=== PATIENT | male | born 1975 | race Caucasian/White ===

== ENCOUNTER 2016-08-28 06:51 | Emergency (ER) | payer OTHER, MEDICARE ==
[~2016-08-28] VITALS: Ht 172.7 cm; Wt 68.0 kg
[2016-08-28] MEDS ORDERED: SUBOXONE 8 MG-1 EACH SL (07:04)
[2016-08-28] MEDS ORDERED: LATUDA20 M1 PO (07:05)
--- NOTE | 2016-08-28 08:08 | ED GENERAL ADULT ---
History of Present Illness General Chief Complaint: ETOH/Drug Related Complaint Stated Complaint: WAS ON SUBOXONE,USED HEROIN NOW HAVING PROBLEMS Source: patient Exam Limitations: no limitations Vital Signs & Intake/Output Vital Signs & Intake/Output Vital Signs Date Time Temp Pulse Resp B/P Pulse O2 O2 Flow FiO2 Ox Delivery Rate 08/28 1039 97.2 60 18 118/79 98 Room Air 08/28 0844 97.2 57 18 129/81 99 Room Air 08/28 0820 96.3 95 18 142/75 08/28 0709 98 Room Air 08/28 0705 96.3 95 18 142/75 98 Room Air Allergies Coded Allergies: haloperidol (From HALDOL) (UNKNOWN 08/28/16) Reconcile Medications Buprenorphine HCl/Naloxone HCl (Suboxone 8 MG-2 MG Sl Film) 8 MG-2 MG FILM 1 STR SL DAILY HEROIN (Reported) Lurasidone HCl (Latuda) 20 MG TABLET 1 TAB PO DAILY SLEEP (Reported) Triage Note: TRIAGE: PATIENT TO ER FROM HOME REPORTING HX HEROIN ABUSE, RELAPSED FEW WEEKS AGO, LAST USE THIS AM APPROX 3 BAGS, THEN REPORTS TOOK SUBOXONE 12MG TOTAL X "3-5 HOURS AGO." PATIENT VERY ANXIOUS STATING, "I PUT MYSELF IN PERCIPITATIVE WITHDRAWL." NOW REPORTING GENERALIZED PAIN TO ENTIRE BODY AND LOWER EXTREMITIES AND "SO COLD." Triage Nurses Notes Reviewed? yes HPI: Patient presents for evaluation of opiate withdrawal. Patient states he has been on Suboxone for 2 years. He then got depressed and discontinued his Suboxone and began using heroin. He's been using this about 1 week, 5 or so bags per day. His last use was about 8:30 yesterday morning. He tried taking 2 Suboxone tablets but this only made his symptoms worse. He is now complaining of severe muscle aches, leg pains and nausea/vomiting. Nothing seems to make him feel better. Symptoms have been more or less constant since gradual onset, fluctuating in intensity. Past History Travel History Traveled to [place] past 21 day No Medical History Any Pertinent Medical History? see below for history Neurological: NONE EENT: NONE Cardiovascular: AFIB Respiratory: NONE Gastrointestinal: NONE Hepatic: NONE Renal: NONE Musculoskeletal: NONE Psychiatric: depression, IV drug abuse Blood Disorders: NONE Cancer(s): NONE ORAL SURGERY TECHNICIAN/Reproductive: NONE Surgical History Surgical History: non-contributory Psychosocial History What is your primary language Gibraltarian Tobacco Use: Never used ETOH Use: denies use Illicit Drug Use: heroin Family History Hx Contributory? No Review of Systems Review of Systems Constitutional: Reports: no symptoms. EENTM: Reports: no symptoms. Respiratory: Reports: no symptoms. Cardiovascular: Reports: no symptoms. GI: Reports: see HPI. Genitourinary: Reports: no symptoms. Musculoskeletal: Reports: see HPI. Skin: Reports: no symptoms. Neurological/Psychological: Reports: no symptoms. Hematologic/Endocrine: Reports: no symptoms. Immunologic/Allergic: Reports: no symptoms. All Other Systems: Reviewed and Negative Physical Exam Physical Exam General Appearance: SEE BELOW Comments: Gen.: Well-nourished, well-developed, no acute respiratory distress. Mildly uncomfortable appearing. Head: Normocephalic, atraumatic. Eyes: Normal inspection bilaterally Ears: Normal inspection bilaterally Nose: Normal inspection Throat/mouth : Moist mucosa Neck: Supple, full range of motion, no goiter Heart: Regular rate and rhythm, no murmurs rubs or gallops Lungs: Clear to auscultation bilaterally with normal air entry Chest: Nontender Back: Normal range of motion Abdomen: Soft, mild diffuse tenderness without rebound or guarding, nondistended , increased bowel sounds Extremities: Normal range of motion grossly, equal radial pulses, no cyanosis clubbing or edema Neurologic: Cranial nerves grossly intact, speech is clear Skin: warm and dry Psychiatric: Slightly anxious, cooperative, no apparent delusions or hallucinations Core Measures ACS in differential dx? No CVA/TIA Diagnosis: No Severe Sepsis Present: No Septic Shock Present: No Progress Differential Diagnoses I considered the following diagnoses in my evaluation of the patient: Opiate withdrawal, viral syndrome Plan of Care: Current Medications Sig/Sharri Start time Last Medication Dose Stop Time Status Admin Clonidine 0.1 MG ONCE ONE 08/28 814 UNVr (Catapres) 08/29 815 Promethazine HCl 25 MG ONCE ONE 08/28 814 UNVr (Phenergen) 08/29 815 Initial ED EKG: none Comments: 08/28/2016 10:50:40 AM patient sleeping comfortably. Departure Departure Disposition: HOME OR SELF CARE Condition: Stable Clinical Impression Primary Impression: Opiate withdrawal Referrals: TISHA MCCRACKEN,ABBE Zarate (PCP/Family) Additional Instructions: Phenergan as needed for nausea or vomiting. Clonidine as needed for elevated heart rate or blood pressure. Follow-up with your primary care physician on Wednesday. Return if any concerns or sudden worsening. Departure Forms: Customer Survey General Discharge Information Prescriptions: Current Visit Scripts Promethazine HCl 1 TAB PO Q6P PRN NAUSEA/VOMITING #20 TAB Clonidine HCl 1 TAB PO QPM PRN HIGH HEART RATE #3 TAB Critical Care Note Critical Care Note Critical Care Time: non-applicable
[2016-08-28 10:39] VITALS: BP 118/79
[2016-08-28] MEDS ORDERED: PROMETHAZINE HC25 M3 PO (11:05)
[2016-08-28] MEDS ORDERED: CLONIDINE HCL0.1 MG PO (11:05)
== END 2016-08-28 11:15 ==
LOC: ERH 06:51
DX: F11.23 Opioid dependence with withdrawal (principal)
CPT/HCPCS: 96372; J2550

== ENCOUNTER 2016-11-24 04:37 | Emergency (ER) | payer OTHER, MEDICARE ==
[~2016-11-24] VITALS: Ht 172.7 cm; Wt 72.6 kg
[~2016-11-24 04:37] MED LIST: CLONIDINE HCL0.1 MG PO; LATUDA20 M1 PO; PROMETHAZINE HC25 M3 PO; SUBOXONE 8 MG-1 EACH SL
--- NOTE | 2016-11-24 05:09 | ED EYE COMPLAINT ---
History of Present Illness General Chief Complaint: Eye Problems Stated Complaint: EYE PROBLEMS Source: patient, friend Exam Limitations: unable to give history, intoxication Vital Signs & Intake/Output Vital Signs & Intake/Output Vital Signs Date Time Temp Pulse Resp B/P B/P Pulse O2 O2 Flow FiO2 Mean Ox Delivery Rate 11/24 0802 98.4 84 18 101/65 96 Room Air 11/24 0608 97.0 86 18 96/62 99 Room Air 11/24 0503 94 Room Air 11/24 0447 96.8 63 10 112/83 90 Room Air Allergies Coded Allergies: haloperidol (From HALDOL) (UNKNOWN 08/28/16) Reconcile Medications Buprenorphine HCl/Naloxone HCl (Suboxone 8 MG-2 MG Sl Film) 8 MG-2 MG FILM 1 STR SL DAILY HEROIN (Reported) Clonidine HCl 0.1 MG TABLET 1 TAB PO QPM PRN HIGH HEART RATE Lurasidone HCl (Latuda) 20 MG TABLET 1 TAB PO DAILY SLEEP (Reported) Promethazine HCl 25 MG TABLET 1 TAB PO Q6P PRN NAUSEA/VOMITING Triage Note: PT TO ED C/O RIGHT EYE SWELLING. ARRIVES WITH FRIEND. IS DROUSY/AROUSABLE WITH VERY SLURRED SPEACH. PIN POINT PUPILS. O2 SAT 84-92 WITH RESP RATE VARIABLE 6/MN TO 12/MIN. FRIEND STATES " HE MUST HAVE GOTTEN SOMETHING IN HIS EYE AFTER HE USED HEROIN. WE FLUSHED THE EYE WITH WATER AND VISINE AND IT WAS REALLY SWOLLEN" FRIEND STATES SWELLING HAS GREATLY REDUCED" SLIGHT SWELLING NOTED AT THIS TIME. PT ADMINISTERED 0.4 MG NARCAN IM WITH GOOD IMPROVEMENT WITH RESPIRATORY EFFORT AND RATE. O2 SAT 90-94% PT EVALUATED BY DR GENAO ON PT ARRIVAL TO ROOM Triage Nurses Notes Reviewed? yes HPI: Patient presents for evaluation of right eye swelling that occurred prior to arrival. The patient himself appears to be under the influence of narcotic pain relievers or illicit narcotics and is unable to provide history. He is quite somnolent and can only speak 2 or 3 words at a time. According to his friend, he was showering and when he was finished she noticed the swelling of his eye. She tried to rinse the eye out with water and also applied Visine without improvement. Apparently the swelling began while the patient was showering. His friend denies any known trauma to the eye. (RIMA MCCRACKEN,DONTA Meyers) Past History Travel History Traveled to [place] past 21 day No Medical History Any Pertinent Medical History? see below for history Neurological: NONE EENT: NONE Cardiovascular: AFIB Respiratory: NONE Gastrointestinal: NONE Hepatic: NONE Renal: NONE Musculoskeletal: NONE Psychiatric: depression, IV drug abuse Blood Disorders: NONE Cancer(s): NONE APPLICATIONS ENGINEER MANUFACTURING/Reproductive: NONE Surgical History Surgical History: non-contributory Psychosocial History What is your primary language Korean Family History Hx Contributory? No (RIMA MCCRACKEN,DONTA Meyers) Review of Systems Review of Systems Constitutional: Reports: no symptoms. Eyes: Reports: see HPI. Ear: Reports: no symptoms. Nose: Reports: no symptoms. Mouth: Reports: no symptoms. Throat: Reports: no symptoms. Respiratory: Reports: no symptoms. Cardiovascular: Reports: no symptoms. GI: Reports: no symptoms. Genitourinary: Reports: no symptoms. Musculoskeletal: Reports: no symptoms. Skin: Reports: no symptoms. Neurological/Psychological: Reports: no symptoms. Hematologic/Endocrine: Reports: no symptoms. Immunologic/Allergic: Reports: no symptoms. All Other Systems: Reviewed and Negative (RIMA MCCRACKEN,DONTA Meyers) Physical Exam General Appearance: well developed/nourished, lethargic General Inspection: normal inspection General Inspection: no apparent trauma to the area of the right eye Eyelid: normal inspection Conjunctiva/Sclera: diffuse chemosis present Cornea: normal inspection, examined w/fluorescein EOM: palsy, dysconjugate gaze with right eye abducted and elevated, this resolves when pt wakes Pupil: pupillary size miotic Anterior Chamber: normal inspection Physical Exam Head: atraumatic, normal appearance Ears: Bilateral: other (nl inspection). Nose: normal inspection Mouth/Throat: normal mouth inspection Neck: supple, trachea midline, no apparent trauma Cardiovascular/Respiratory: heart: Regular rate and rhythm with no murmurs rubs or gallops, lungs: Decreased chest kevin/respiratory effort but otherwise clear breath sounds bilaterally Gastrointestinal: normal bowel sounds Neurologic/Psych: somnolent/lethargic but arousable. Speech heavily slurred and often difficult to understand. Skin: warm/dry, puncture wound of the right antecubital fossa (RIMA MCCRACKEN,DONTA Meyers) Progress Differential Diagnosis: globe rupture, orbital floor fracture, chemical eye exposure, opiate overdose Plan of Care: 11/24/2016 7:40:25 AM Patient signed out to me by Dr. Genao at change of shift. He said initially presented for chemosis of the eye but was found to be sedated from narcotic use. Patient given an IM injection of Narcan at 5:45 with good effect. We will continue to monitor him according to Slim protocol. 9:50 AM PATIENT ANGRY, WANTS TO GO HOME. WILL LEAVE AMA. O2 SAT AMBULATORY 95%. He reports we stole money from him by giving him narcan because he paid for the Heroin. The patient has been monitored for 4 hours after IV Narcan patient never needed another dose. At this time he would like to go home. He is not suicidal or homicidal. Outpatient detox facilities provided to the patient. 9:58 AM PATIENT REFUSED TO SIGN AMA FORMComments: Patient treated with 0.4 mg of IM Narcan with improvement in respiratory effort. 11/24/2016 5:42:07 AM Ad seems to be a bit more lethargic now so additional Narcan has been ordered. 11/24/2016 7:12:19 AM patient signed out to Dr. Green at shift meter changes records clerk. (RIMA MCCRACKEN,DONTA Meyers) Plan of Care: 11/24/2016 7:40:25 AM Patient signed out to me by Dr. Genao at change of shift. He said initially presented for chemosis of the eye but was found to be sedated from narcotic use. Patient given an IM injection of Narcan at 5:45 with good effect. We will continue to monitor him according to Slim protocol. 9:50 AM PATIENT ANGRY, WANTS TO GO HOME. WILL LEAVE AMA. O2 SAT AMBULATORY 95%. He reports we stole money from him by giving him narcan because he paid for the Heroin. The patient has been monitored for 4 hours after IV Narcan patient never needed another dose. At this time he would like to go home. He is not suicidal or homicidal. Outpatient detox facilities provided to the patient. 9:58 AM PATIENT REFUSED TO SIGN AMA FORM (SKYE GREEN MD) Departure Departure Condition: Stable Clinical Impression Primary Impression: Opiate overdose Qualifiers: Encounter type: initial encounter Injury intent: undetermined intent Qualified Code: T40.604A - Poisoning by unspecified narcotics, undetermined, initial encounter Secondary Impressions: Chemosis of right conjunctiva Departure Forms: Customer Survey General Discharge Information (RIMA MCCRACKEN,DONTA D) Departure Time of Disposition: 951 Disposition: LEFT AGAINST MEDICAL ADVICE Referrals: TISHA MCCRACKEN,ABBE Zarate (PCP/Family) VERÓNICA MCCRACKEN,ZAHIRA Holman Additional Instructions: follow up with the microcomputer support specialist and the list of outpatient opiate detox clinics return if worse (SHAWN MCCRACKEN,SKYE)
[2016-11-24 09:58] VITALS: BP 124/86
== END 2016-11-24 10:00 | disposition left against medical advice (07) ==
LOC: ERH 04:37
DX: T40.604A Poisoning by unspecified narcotics, undetermined, initial encounter (principal); H11.421 Conjunctival edema, right eye
CPT/HCPCS: 96372; J2310

== ENCOUNTER 2018-02-02 14:39 | Emergency (ER) | payer OTHER, MEDICARE ==
[~2018-02-02] VITALS: Ht 175.3 cm; Wt 83.9 kg
[~2018-02-02 14:39] MED LIST changes: +BACTRIM DS TAB1 EACH PO; +IBUPROFEN800 M1 PO; +KEFLEX500 M1 PO; +NEURONTIN300 M1 PO; +ZOFRAN ODT4 M1 SL
[2018-02-02 14:47] VITALS: BP 132/85
--- NOTE | 2018-02-02 15:22 | ED PSYCHIATRIC COMPLAINT ---
History of Present Illness General Chief Complaint: General Adult Stated Complaint: BENZO WITHDRAWL/MED REQUEST (BENZOS) Source: patient, family Exam Limitations: no limitations Vital Signs & Intake/Output Vital Signs & Intake/Output Vital Signs Date Time Temp Pulse Resp B/P B/P Pulse O2 O2 Flow FiO2 Mean Ox Delivery Rate 02/02 1447 97.0 70 20 132/85 96 Room Air Allergies Coded Allergies: haloperidol (From HALDOL) (UNKNOWN 08/28/16) Reconcile Medications Buprenorphine HCl/Naloxone HCl (Suboxone 8 MG-2 MG Sl Film) 8 MG-2 MG FILM 1 STR SL DAILY HEROIN (Reported) Cephalexin (Keflex) 500 MG CAPSULE 1 CAP PO Q6H ABSCESS Clonidine HCl 0.1 MG TABLET 1 TAB PO QPM PRN OPIATE WITHDRAW Gabapentin (Neurontin) 300 MG CAPSULE 1 CAP PO TID BENZO WITHDRAW Ibuprofen 800 MG TABLET 1 TAB PO TID PRN PAIN Lurasidone HCl (Latuda) 20 MG TABLET 1 TAB PO DAILY SLEEP (Reported) Ondansetron (Zofran Odt) 4 MG TAB.RAPDIS 1 TAB SL TID PRN NAUSEA Sulfamethoxazole/Trimethoprim (Bactrim Ds Tablet) 800 MG-160 MG TABLET 1 TAB PO BID CELLULITIS Triage Note: PT C/O SEVERE ANXIETY AND STATES HE WAS RX'D BENZOS IN THE PAST BUT HE HAS A PSYCHIATRIST APPT ON AND STATES HE NEEDS ENOUGH TO GET TO THAT APPOINTMENT Triage Nurses Notes Reviewed? yes Onset: Gradual Duration: week(s): Timing: recent history Severity: severe HPI: 42yo male presents to ED requesting benzos to help with his severe anxiety. PAtient states he is going through benzo withdrawal, he last took Xanax 0.5mg this morning. Patient has been taking between 4-8mg xanax per day which he has been buying off the street. He has not seen a psychiatrist recently however reports he made an appointment for february with a new psychiatrist in [place]. Patient is requesting prescription for benzos to help his anxiety and to prevent his withdrawal. Patient denies SI/HI. (Clare QUICK,Marcelina Meléndez) Past History Travel History Traveled to [place] past 21 day No Medical History Any Pertinent Medical History? none Neurological: NONE EENT: NONE Cardiovascular: AFIB Respiratory: NONE Gastrointestinal: NONE Hepatic: NONE Renal: NONE Musculoskeletal: NONE Psychiatric: depression, IV drug abuse Blood Disorders: NONE Cancer(s): NONE OCEAN LIFEGUARD/Reproductive: NONE Surgical History Surgical History: non-contributory Psychosocial History What is your primary language Somali Tobacco Use: Current Not Daily ETOH Use: denies use Illicit Drug Use: benzodiazepines Family History Hx Contributory? No (Marcelina Meza) Review of Systems Review of Systems Constitutional: Reports: no symptoms. EENTM: Reports: no symptoms. Respiratory: Reports: no symptoms. Cardiovascular: Reports: no symptoms. GI: Reports: no symptoms. Genitourinary: Reports: no symptoms. Musculoskeletal: Reports: no symptoms. Skin: Reports: no symptoms. Neurological/Psychological: Reports: see HPI. Hematologic/Endocrine: Reports: no symptoms. Immunologic/Allergic: Reports: no symptoms. All Other Systems: Reviewed and Negative (Marcelina Meza) Physical Exam Physical Exam General Appearance: well developed/nourished, no apparent distress, alert, awake , anxious Head: atraumatic, normal appearance Eyes: Bilateral: normal appearance. Ears, Nose, Throat: hearing grossly normal Neck: normal inspection, supple, full range of motion Respiratory: normal breath sounds, no respiratory distress, lungs clear Cardiovascular: regular rate/rhythm Neurological/Psychiatric: awake, alert, anxious Appearance/Memory/Insight: appropriate appearance Behavoir/Eye Contact/Speech: cooperative, normal speech Thoughts/Hallucinations: normal thought pattern, no apparent hallucination Skin: intact, normal color, warm/dry SAD PERSONS Done? patient not suicidal (Marcelina Meza) Progress Differential Diagnosis: drug intoxication, drug overdose, drug withdrawal, anxiety, benzo dependence Plan of Care: Orders Procedure Date/time Status URINE DRUG SCREEN FOR ER ONLY 02/02 1523 Complete ETHANOL 02/02 1523 Complete COMPREHENSIVE METABOLIC PANEL 02/02 1523 Complete CBC WITHOUT DIFFERENTIAL 02/02 152 Complete ED CRISIS PSYCH CONSULT 02/02 1523 Active Laboratory Tests 02/02/18 1535: Urine Opiates Screen < 100, Methadone Screen > 735 H, Barbiturate Screen < 60, Ur Phencyclidine Scrn < 6.00, Amphetamines Screen 396, U Benzodiazepines Scrn > 800 H, Urine Cocaine Screen 59, Urine Cannabis Screen 58.10 H 02/02/18 1530: Anion Gap 7, Estimated GFR > 60, BUN/Creatinine Ratio 17.8, Glucose 86, Calcium 9.3, Total Bilirubin 0.4, AST 25, ALT 32, Alkaline Phosphatase 77, Total Protein 7.6, Albumin 4.4, Globulin 3.2, Albumin/Globulin Ratio 1.4, CBC w Diff NO MAN DIFF REQ, RBC 4.89, MCV 89.9, MCH 30.2, MCHC 33.6, RDW 13.5, MPV 8.1, Gran % 61.2, Lymphocytes % 26.0, Monocytes % 7.8, Eosinophils % 4.4, Basophils % 0.6, Absolute Granulocytes 3.5, Absolute Lymphocytes 1.5, Absolute Monocytes 0.4, Absolute Eosinophils 0.3, Absolute Basophils 0, Serum Alcohol < 10.0 I informed the patient that it is not appropriate for me to prescribe him benzodiazepines given his dependence on this medication the fact that he has been buying these medications illegally on the streets. Patient initially requesting to see crisis for his anxiety. Labs and urinalysis obtained. While waiting to see crisis the patient called an outpatient detox facility and was accepted to detox there, he is requesting to leave the emergency department at this time and go to the detox facility. Patient is not suicidal, he does not need to see crisis here at this time. I offered gabapentin and clonidine prescriptions however patient declines as he is going to the detox facility straight from this hospital. Discussed findings with Dr. Villa who agrees with plan of care. (Clare QUICK,Marcelina Meléndez) Departure Departure Disposition: HOME OR SELF CARE Condition: Stable Clinical Impression Primary Impression: Benzodiazepine abuse Secondary Impressions: Benzodiazepine withdrawal Referrals: Elisa MCCRACKEN,Raymond Lagunas (PCP/Family) Additional Instructions: follow up at detox program when you leave. Departure Forms: Customer Survey General Discharge Information (Marcelina Meza) PA/KLYSTROM TUBE TESTER Co-Sign Statement Statement: ED Attending supervision documentation- [] I saw and evaluated the patient. I have also reviewed all the pertinent lab results and diagnostic results. I agree with the findings and the plan of care as documented in the PA's/KLYSTROM TUBE TESTER's documentation. [X] I have reviewed the ED Record and agree with the PA's/KLYSTROM TUBE TESTER's documentation. [] Additions or exceptions (if any) to the PAs/KLYSTROM TUBE TESTER's note and plan are summarized below: [] (Allen MCCRACKEN,Salty Dobbs)
[2018-02-02 15:56] LABS: ABSOLUTE BASOPHIL COUNT 0 /CUMM (0.0-0.2); ABSOLUTE EOSINOPHIL COUNT 0.3 /CUMM (0.0-0.7); ABSOLUTE GRANULOCYTE CT 3.5 /CUMM (1.4-6.5); ABSOLUTE LYMPH COUNT 1.5 /CUMM (1.2-3.4); ABSOLUTE MONOCYTE COUNT 0.4 /CUMM (0.10-0.60); BASOPHIL % 0.6 % (0.0-2.0); EOSINOPHIL % 4.4 % (0-5); GRANULOCYTE % 61.2 % (42.2-75.2); MEAN CORPUSCULAR HGB 30.2 PG (27.0-31.0); MEAN CORPUSCULAR HGB CONC 33.6 G/DL (33.0-37.0); MEAN CORPUSCULAR VOLUME 89.9 FL (80.0-94.0); MEAN PLATELET VOLUME 8.1 FL (7.4-10.4); PLATELET COUNT 209 /CUMM (130-400); RBC DISTRIBUTION WIDTH 13.5 % (11.5-14.5); RED BLOOD CELL CT 4.89 /CUMM (4.70-6.10); WHITE BLOOD CELL COUNT 5.7 /CUMM (4.8-10.8)
== END 2018-02-02 16:16 ==
LOC: ERH 14:39
PROVIDERS: Physician Assistant
DX: F13.239 Sedative, hypnotic or anxiolytic dependence with withdrawal, unspecified (principal)
CPT/HCPCS: 80307; G0480